=== PATIENT | female | born 1985 ===

== ENCOUNTER 2017-05-08 08:33 | Emergency (ER) | payer MEDICAID ==
[2017-05-08 08:42] VITALS: BMI 21.4
--- NOTE | 2017-05-08 10:02 | ED PDOC ---
Arrival/HPI - General Chief Complaint: Trauma Time Seen by Provider: 05/08/17 08:45 Historian: Patient - History of Present Illness Narrative History of Present Illness (Text): 05/08/17 08:50 Lian Yuan is a 31 year old female who presents to the emergency department complaining of left ankle injury s/p accidental slip/twist while leaving brother's house this morning. Patient states that she experiences pain to anterior mid foot and post lateral malleous of left LE. Patient notes that she also has pain to the back of her left wrist and distal radial region. Time/Duration: 1-3 hours Symptom Onset: Sudden Symptom Course: Improving Activities at Onset: Light Context: Home Past Medical History - Provider Review Nursing Documentation Reviewed: Yes - Psychiatric Hx Substance Use: No - Surgical History Hx Section: Yes - Anesthesia Hx Anesthesia: No Family/Social History - Physician Review Nursing Documentation Reviewed: Yes Family/Social History: No Known Family HX Smoking Status: Never Smoked Hx Alcohol Use: No Hx Substance Use: No Allergies/Home Meds Allergies/Adverse Reactions: Allergies No Known Allergies Allergy (Verified 05/08/17 08:42) Review of Systems - Physician Review All systems were reviewed & negative as marked: Yes - Review of Systems Constitutional: absent: Fevers, Night Sweats Eyes: absent: Vision Changes ENT: absent: Hearing Changes Respiratory: absent: SOB Cardiovascular: absent: Chest Pain Gastrointestinal: absent: Abdominal Pain Genitourinary Female: absent: Dysuria Musculoskeletal: Other (Left ankle injury s/p slipping) Physical Exam Vital Signs Reviewed: Yes Vital Signs Temp Pulse Resp BP Pulse Ox 05/08/17 08:50 98.3 F 72 18 105/63 100 Temperature: Afebrile Blood Pressure: Normal Pulse: Regular Respiratory Rate: Normal Appearance: Positive for: Well-Appearing, Non-Toxic, Comfortable Pain Distress: None Mental Status: Positive for: Alert and Oriented X 3 - Systems Exam Head: Present: Atraumatic, Normocephalic Pupils: Present: PERRL Extroacular Muscles: Present: EOMI Conjunctiva: Present: Normal Mouth: Present: Moist Mucous Membranes Neck: Present: Normal Range of Motion Respiratory/Chest: Present: Clear to Auscultation, Good Air Exchange. No: Respiratory Distress, Accessory Muscle Use Cardiovascular: Present: Regular Rate and Rhythm, Normal S1, S2. No: Murmurs Abdomen: Present: Normal Bowel Sounds. No: Tenderness, Distention, Peritoneal Signs Back: Present: Normal Inspection Upper Extremity: Present: Tenderness (to left wrist over posterior aspect of radial joint) Lower Extremity: Present: Tenderness (to posterior aspect of lateral malleolus and anterior midfoot) Neurological: Present: GCS=15, CN II-XII Intact, Speech Normal Skin: Present: Warm, Dry, Normal Color. No: Rashes Psychiatric: Present: Alert, Oriented x 3, Normal Insight, Normal Concentration Medical Decision Making ED Course and Treatment: 05/08/17 10:05 Impression: 31 year old female complaining of left ankle and left wrist injuries s/p accidental slip/twist while leaving brother's house this morning. Differential Diagnosis included but are not limited to: Mechanical Fall Plan: -- Left Ankle X-ray -- Left Foot X-ray -- Motrin -- Reassess and disposition Progress Notes: - RAD Interpretation Radiology Orders: 05/08/17 09:04 ANKLE LEFT 3 VIEWS ROUTINE [RAD] Stat FOOT LEFT 3 VIEWS ROUTINE [RAD] Stat - Medication Orders Current Medication Orders: Discontinued Medications Ibuprofen (Motrin Tab) 600 mg PO STAT STA Stop: 05/08/17 09:05 Last Admin: 05/08/17 09:31 Dose: 600 mg MAR Pain/Vitals Document 05/08/17 09:31 SRE (Rec: 05/08/17 09:32 SRE [id number]) Pain Reassessment Is This A Pain ReAssessment? Yes Sleep Is patient sleeping during reassessment? No Presence of Pain Presence of Pain Yes Pain Scale Used Pain Scale Used Numeric Location Left, Right or Bilateral Right Upper or Lower Upper Pain Location Body Site Hand Description Intermittent - Scribe Statement The provider has reviewed the documentation as recorded by the Karinibbrenda Butler Provider Scribe Attestation: All medical record entries made by the Karinibbrenda were at my direction and personally dictated by me. I have reviewed the chart and agree that the record accurately reflects my personal performance of the history, physical exam, medical decision making, and the department course for this patient. I have also personally directed, reviewed, and agree with the discharge instructions and disposition. Disposition/Present on Arrival - Present on Arrival History of DVT/PE: No History of Uncontrolled Diabetes: No Urinary Catheter: No History of Decub. Ulcer: No History Surgical Site Infection Following: None - Disposition Diagnosis: Ankle sprain, Left wrist sprain Disposition: HOME/ ROUTINE Patient Problems: Current Active Problems Problem Status Onset Ankle sprain Acute Left wrist sprain Acute Condition: IMPROVED Discharge Instructions (ExitCare): Ankle Sprain (ED), Ankle Exercises (GEN) Print Language: YAKUT Additional Instructions: -REST/ICE /COMPRESSION WRAP /ELEVATE the affected extremity x 1 week . -Take motrin with food as needed of pain. Prescriptions: Ibuprofen [Motrin Tab] 600 mg PO Q6 PRN #40 tab PRN Reason: Pain, Moderate (4-7) Referrals: Brittany Villanueva MD [Primary Care Provider] - Follow up with primary Forms: [employer] (Beninese)
--- NOTE | 2017-05-08 10:49 | RAD ---
PROCEDURE: Left Ankle Radiographs. HISTORY: twist COMPARISON: None FINDINGS: BONES: Normal. No fracture. JOINTS: Normal. No osteoarthritis. Ankle mortise maintained. Talar dome intact SOFT TISSUES: Normal. OTHER FINDINGS: None. IMPRESSION: Normal left ankle radiographs.
--- NOTE | 2017-05-08 10:50 | RAD ---
PROCEDURE: Left Foot Radiographs. HISTORY: twist injury COMPARISON: None. FINDINGS: BONES: Normal. No fracture. JOINTS: Normal. SOFT TISSUES: Normal. OTHER FINDINGS: None. IMPRESSION: Normal left foot radiographs.
[2017-05-08 11:07] VITALS: BP 110/79; PULSE 76; RESP 16; TEMP 97.8; O2SAT 98
--- NOTE | 2017-05-08 11:15 | RAD ---
PROCEDURE: Left Wrist Radiographs. HISTORY: fall COMPARISON: None. FINDINGS: BONES: Normal. No fracture. JOINTS: Normal. No dislocation. SOFT TISSUES: Normal. OTHER FINDINGS: None. IMPRESSION: Normal left wrist radiographs.
== END 2017-05-08 11:22 | disposition home or self-care (01) ==
LOC: MERGE 08:33 → ED 08:33
DX: S93.402A Sprain of unspecified ligament of left ankle, initial encounter (principal); S63.502A Unspecified sprain of left wrist, initial encounter; W01.0XXA Fall on same level from slipping, tripping and stumbling without subsequent striking against object, initial encounter; Y92.89 Other specified places as the place of occurrence of the external cause